=== PATIENT | female | born 1995 | race African-American/Black ===

== ENCOUNTER 2023-03-19 21:18 | Outpatient (REF) | payer OTHER, SELFPAY ==
[2023-03-26 09:10] LABS: Age Gdln ACOG Testing Note (.); IGP, rfx Aptima HPV ASCU Note (.)
== END 2023-03-19 21:19 | disposition home or self-care (01) ==
LOC: LAB 21:18
PROVIDERS: Visit Provider Obstetrics & Gynecology
DX: Z01.419 Encounter for gynecological examination (general) (routine) without abnormal findings (principal)
CPT/HCPCS: G0145

== ENCOUNTER 2023-12-17 16:01 | Outpatient (OUT) | payer SELFPAY ==
--- NOTE | 2023-12-17 | US_ITS ---
[address] [address] Patient Name: PATRICK VERDUZCO MRN: [id number] date: 1995 Sex: F Assigned Patient Location: Current Patient Location: Accession/Order Number: [id number] Exam Date: 12/17/2023 16:27 Report Date: 12/19/2023 06:24 At the request of: WOO ORTIZ Procedure: US pelvis transvaginal EXAMINATION: US pelvis transvaginal HISTORY: IUD placement check COMPARISON: No relevant comparison available. TECHNIQUE: Transabdominal and/or transvaginal sonographic examination was performed as indicated by examination type. FINDINGS: UTERUS: Normal size and appearance. Uterus size: 8.9 x 4.1 x 4.8 cm. ENDOMETRIUM: Normal homogeneous appearance. IUD within fundal portion of endometrial cavity. Endometrial thickness: 4.4 RIGHT OVARY: Normal size and appearance. Duplex Doppler demonstrates normal waveform and flow; resistive index 0.5. Ovary size: 2.6 x 1.6 x 1.6 cm LEFT OVARY: Normal size and appearance. Duplex Doppler demonstrates normal waveform and flow; resistive index 0.5. Ovary size: 3.9 x 2.0 x 2.3 cm CUL-DE-SAC: Unremarkable. No significant free fluid. BLADDER: Unremarkable. OTHER: None. US/US pelvis transvaginal IMPRESSION: 1. IUD appearing appropriately positioned within fundal endometrial cavity. 2. No suspicious findings.. Electronically authenticated by: SAVANNAH BRIGGS Date: 12/19/2023 06:24
--- OUTSIDE RECORDS SUMMARY | 2023-12-17 16:16 | XMS_ITS | CCD ---
Demographics Address [facility] [address] [place] [address] Mobile Phone Preferred Language en Marital Status Single Advent Affiliation Unknown Race Black or Herlinda rican Ethnic Group Not or Lati no Author Organization [facility] Care Team Providers Care Director Of Front Office Name Role Phone SHIRAZ GALVAN Attending Unavailable SHIRAZ GALVAN Admitting Unavailable SHIRAZ GALVAN Consulting Unavailable SHIRAZ GALVAN Attending Unavailable SHIRAZ GALVAN Admitting Unavailable SHIRAZ GALVAN Consulting Unavailable Altagracia Cano Unavailable CAROL ANN CARDOZA Attending Unavailable Allergies Allergy Classification Reported Allergen(s) Allergy Type Date of Onset Reaction(s) Facility Iodine (and Iodine containting drugs) (1 source) Iodine (And Iodine Containting Drugs) Drug Allergy 05-29-2016 [facility] Rep[facility] (1 source) Glucosamine Drug Allergy Unknown [facility] Other Medications Completed/Discontinued Medications Medication Drug Class(es) Dates Sig (Normalized) Sig (Original) predniSONE 20 mg oral tablet (2 sources) Start: 07-01-2023 End: 07-28-2023 take 20 mg by mouth twice daily Prednisone Discontinued 20 MG PO Twice daily 10 5 July 01, 2023 1:00am July 28, 2023 3:31pm Pseudoephedrine-Gu aifenesin (Mucinex D Maximum Strength) 120-1,200 mg tablet extended release 12 hr (2 sources) Start: 07-01-2023 End: 07-28-2023 take 120-1200 mg by mouth every twelve hours Pseudoephedrine-Gua ifenesin (Mucinex D Maximum Strength) 120-1,200 mg tablet extended release 12 hr Discontinued 1 TAB PO Every 12 hours 14 July 01, 2023 1:00am July 28, 2023 3:31pm Start: 07-01-2023 take 120-1200 mg by mouth every twelve hours Pseudoephedrine-Guaifenesin (Mucinex D Maximum Strength) 120-1,200 mg tablet extended release 12 hr Active 1 TAB PO Every 12 hours 14 July 01, 2023 12:00am Problems Active Problems Problem Classification Problem Date Documented Date Episodic/Chronic Other screening for suspected conditions (not mental disorders or infectious disease) (4 sources) Encounter for screening for malignant neoplasm of cervix; Translations: [ENC SCREENING MALIG NEOPLASM CERV] Onset: 09-14-2020 Episodic Otitis media and related conditions (4 sources) Acute transudative otitis media; Translations: [Other acute nonsuppurative otitis media, bilateral] 07-01-2023 Episodic Past or Other Problems Problem Classification Problem Date Documented Da te Episodic/Chronic Immunizations and screening for infectious disease (1 source) Contact with and (suspected) exposure to other viral communicable diseases Onset: 03-29-2021 Resolved: 03-29-2021 Episodic Results Test Name Value Interpretation Reference Range Facility [facility] 09-19-2021 Consent [id number]# 1.00CD:127 Normal [facility] Registrationon 09-19-2021 Registration [id number]# 1.00CD:127 Normal [facility] COVID Quick Testingon 2020 Result Negative [facility] Other HEPATITIS PANEL, ACUTEon HBsAg Screen Negative Normal Negative [facility] Comment on above: Performed By: #### H EPACUT #### [facility] [address] [place], [place] [address] Russell Kaitlyn Hep A Ab, IgM Negative Normal Negative [facility] Comment on above: Performed By: #### H EPACUT #### [facility] [address] [place], [place] [address] Russell Kaitlyn Hep B Core Ab, IgM Negative Normal Negative [facility] Comment on above: Performed By: #### H EPACUT #### [facility] [address] [place], [place] [address] Russell Kaitlyn Hep C Virus Ab <0.1 Normal 0.0-0.9 [facility] Comment on above: Result Comment: Nega tive: < 0.8 Indeterminate: 0.8 - 0.9 Positive: > 0.9 . The CDC recommends that a positive HCV antibody result be followed up with a HCV Nucleic Acid Amplification test (298174). Performed By: #### H EPACUT #### [facility] [address] [place] [address] Russell Sahni HERPES SIMPLEX 1/2 IGGon HSV 1 IgG, Type Spec 1.69 index Critically high 0.00-0.90 [facility] Comment on above: Result Comment: Nega tive <0.91 Equivocal 0.91 - 1.09 Positive >1.09 Note: Negative indicates no antibodies detected to HSV-1. Equivocal may suggest early infection. If clinically appropriate, retest at later date. Positive indicates antibodies detected to HSV-1. Performed By: #### H SV IGG #### [facility] [address] [place] [address] Russell Sahni HSV 2 IgG Type Spec 15.20 index Critically high 0.00-0.90 [facility] Comment on above: Result Comment: Nega tive <0.91 Equivocal 0.91 - 1.09 Positive >1.09 Note: Negative indicates no antibodies detected to HSV-2. Equivocal may suggest early infection. If clinically appropriate, retest at later date. Positive indicates antibodies detected to HSV-2. Performed By: #### H SV IGG #### [facility] [address] [place] [address] Russell Sahni HERPES SIMPLEX 1/2 IGMon HSV, IgM I/II Combination 1.31 Ratio Critically high 0.00-0.90 [facility] Comment on above: Result Comment: Nega tive <0.91 Equivocal 0.91 - 1.09 Positive >1.09 Performed By: #### H SVIGM #### [facility] [address] [place] [address] Russell Sahni HIV 1 AND 2 WITH REFLEXon HIV Screen 4th Generation wRfx Non-Reactive Normal Non Reactive [facility] Comment on above: Performed By: #### H IV12 #### [facility] [address] [place] [address] Russell Sahni RPR QUANTon 09-15-2020 Rapid Plasma Reagin, Quant Non-Reactive Normal NonRea<1:1 [facility] Comment on above: Performed By: #### R PRQ #### [facility] [address] [place] [address] Russell Sahni PAP ACOG PANEL 3: 21 to 29on 09-14-2020 . . Normal [facility] Comment on above: Result Comment: Perf ormed at: WB Performed By: #### [id number] #### [facility] [address] [place] [address] Russell Sahni Age Gdln ACOG Testing - Normal [facility] Comment on above: Performed By: #### [id number] #### [facility] [address] [place] [address] Russell Sahni Chlamydia, Nuc. Acid Amp Positive Abnormal Negative [facility] Comment on above: Result Comment: . Performed at: =G Performed By: #### [id number] #### [facility] [address] [place] [address] Russell Sahni DIAGNOSIS: Comment Normal [facility] Comment on above: Result Comment: NEGA TIVE FOR INTRAEPITHELIAL LESION OR MALIGNANCY. Performed at: WB Performed By: #### [id number] #### [facility] [address] [place] [address] Russell Kaitlyn Gonococcus, Nuc. Acid Amp Negative Normal Negative [facility] Comment on above: Result Comment: Perf ormed at: =G Performed By: #### [id number] #### [facility] [address] [place] [address] Russell Sahni Methodology: Comment Normal [facility] Comment on above: Result Comment: This liquid based ThinPrep(R) pap test was screened with the use of an image guided system. Performed at: WB Performed By: #### [id number] #### [facility] [address] [place] [address] Russell Sahni Note: Comment Normal [facility] Comment on above: Result Comment: The Pap smear is a screening test designed to aid in the detection of premalignant and malignant conditions of the uterine cervix. It is not a diagnostic procedure and should not be used as the sole means of detecting cervical cancer. Both false-positive and false-negative reports do occur. . Performed at: WB Performed By: #### [id number] #### [facility] [address] [place] [address] Russelljonathan Sahni Performed by: Comment Normal [facility] Comment on above: Result Comment: Brianna Alcantara, Material Analyst (ASCP) Performed at: WB Performed By: #### [id number] #### [facility] [address] [place] [address] Russell Kaitlyn Reflex Criteria: Comment Normal [facility] Comment on above: Result Comment: The HPV DNA reflex criteria were not met with this specimen result therefore, no HPV testing was performed. . Performed at: WB Performed By: #### [id number] #### [facility] [address] [place] [address] Russell Kaitlyn Specimen adequacy: Comment Normal [facility] Comment on above: Result Comment: Sati sfactory for evaluation. Endocervical and/or squamous metaplastic cells (endocervical component) are present. Performed at: WB Performed By: #### [id number] #### [facility] [address] [place] [address] Russelljonathan Sahni Vital Signs Date Time Vital Sign Value Performing Clinician Facility 07-28-2023 15:29-0400 Body height 170.18 cm [facility] 07-28-2023 15:29-0400 Body mass index (BMI) [Ratio] 29 kg/m2 [facility] 07-28-2023 15:29-0400 Body temperature 97.3 [degF] [facility] 07-28-2023 15:29-0400 Body weight 83.91 kg [facility] 07-28-2023 15:29-0400 Heart rate 91 /min [facility] 07-28-2023 15:29-0400 Respiratory rate 16 /min [facility] 07-28-2023 15:29-0400 SaO2% (BldA) [Mass fraction] 98 % [facility] 07-01-2023 16:40-0500 Body height 170.18 cm [facility] 07-01-2023 16:40-0500 Body mass index (BMI) [Ratio] 28.1 kg/m2 [facility] 07-01-2023 16:40-0500 Body temperature 98.6 [degF] [facility] 07-01-2023 16:40-0500 Body weight 81.64 kg [facility] 07-01-2023 16:40-0500 Heart rate 83 /min [facility] 07-01-2023 16:40-0500 Respiratory rate 16 /min [facility] 07-01-2023 16:40-0500 SaO2% (BldA) [Mass fraction] 98 % [facility] 03-29-2021 15:45-0500 Body height 172.72 cm Altagracia Cano Other [facility] Other 03-29-2021 15:45-0500 Body mass index (BMI) [Ratio] 26.45 kg/m2 Altagracia Cano Other [facility] Other 03-29-2021 15:45-0500 Body temperature 98.5 [degF] Altagracia Cano Other [facility] Other 03-29-2021 15:45-0500 Body weight 78.93 kg Altagracia Cano Other [facility] Other 03-29-2021 15:45-0500 Respiratory rate 18 /min Altagracia Cano Other [facility] Other 03-29-2021 15:45-0500 SaO2% (BldA) [Mass fraction] 99 % Altagracia Cano Other [facility] Other Encounters Encounter Date Encounter Type Care Provider Facility Start: 07-28-2023 End: 07-28-2023 ambulatory [facility] Work Phone: Start: 07-28-2023 End: 07-28-2023 Patient encounter procedure [facility] Work Phone: Start: 07-01-2023 End: 07-01-2023 ambulatory [facility] Work Phone: Start: 07-01-2023 End: 07-01-2023 Patient encounter procedure [facility] Work Phone: Start: 04-21-2023 End: 04-21-2023 ambulatory CAROL ANN CARDOZA Not Available Start: 03-29-2021 End: 03-29-2021 ambulatory Altagracia Cano Other [facility] Other Start: 03-29-2021 Office outpatient visit 15 minutes Altagracia Cano [facility] Start: 09-14-2020 End: 09-15-2020 ambulatory SHIRAZ GALVAN Facility:[facility] Start: 09-11-2020 End: 09-11-2020 ambulatory SHIRAZ GALVAN Facility: Payers Date Payer Category Payer Unknown [id number] 1995 Unknown [id number] 1995 Unknown [id number] 1995 Unknown [id number] 1961 Unknown [id number] Unknown Cmamie SALAS/LAURA [id number] Unknown Lesliere [id number] Social History Date Type Detail Facility Sex Assigned At [facility] Other Start: 03-29-2021 End: 03-29-2021 Tobacco smoking status NHIS Never smoked tobacco (finding) [facility] Start: 1995 Sex Assigned At Female F [facility] Evaluation note 03-29-2021 Note Date & Type Note Facility 03-29-2021 Evaluation note Encounter Date Diagnosis Assessment Notes Mar, Contact with and (suspected) exposure to other viral communicable diseases (ICD-10 - Z20.828) Today test was performed in office. Results are currently negative. That does not mean that you will not develop COVID or do not currently have a low viral count of COVID. The rapid test works best if symptoms have been over 72 hours and the results can vary if you are asymptomatic There is a higher chance of false negative results to occur if testing is performed too soon. It is recommended that even if results are negative and you have been exposed to someone that has COVID that you follow current CDC recommendations . These can be found at CDC.GOV. Follow up with primary care provider if symptoms persist or do not improve Mar, Other Additional time spent conducting pre-visit phone call, screening for symptoms, instructions on social distancing, application and removal of PPE, and cleaning of examination room, equipment and supplies was preformed. Patient education given for testing methodology and results. Patient care instructions given in writting by [facility] At Home document. [facility] Other Evaluation note Note Date & Type Note Facility Evaluation note Diagnosis Onset Date Acute effusion of both middle ears acute [facility] Work Phone: History general Narrative - Reported Note Date & Type Note Facility History general Narrative - Reported Type Hospitalization History [facility] Hospitalization History childbirth [facility] Other Summary Purpose Family History Relationship Condition Age at Onset Recorded Date/T raj father Unknown Malignant neoplasm Unknown Advance Directives Advance Directive Response Recorded Date/ Time Advance Directives No June 4:32pm Advance Directive Response Recorded Date/ Time Advance Directives No June 5:32pm Chief Complaint and Reason for Visit Chief Complaint Earache Reason for Visit Acute effusion of sebastian th middle ears Chief Complaint Earache ear pain Reason for Visit Acute effusion of sebastian th middle ears Additional Source Comments INFORMATION SOURCE (unrecogn ized section and content) DATE CREATED AUTHOR 09/23/2020 [facility] DATE CREATED AUTHOR AUTHOR'S ORGANIZ ATION 09/21/2021 [facility] DATE CREATED AUTHOR AUTHOR'S ORGANIZ ATION 04/23/[address] [facility] EPIC REASON FOR VISIT (unrecogniz ed section and content) #20 MOMIN JEEP, EXPOSED, FRANCES ESTION, SORE THROAT, LOW GRADE FEVER, COVID Provider Visit Care Teams (unrecognized sec tion and content) Team Status: Active Member Role Status Dates Cinda Evans Primary Care Provider Active Team Status: Inactive Member Role Status Dates Cinda Evans Primary Care Provider Active Star t: July 01, 2023 End: July 01, 2023 Maria Elena Key APRN Attending Provider Active Start: July 01, 2023 End: July 01, 2023 Team Status: Inactive Member Role Status Dates Cinda Evans Primary Care Provider Active Star t: July 28, 2023 End: July 28, 2023 FILIPPO Fleming Active Start: July 28, 2023 End: July 28, 2023 Teresa Nagy APRN Attending Provider Active S tart: July 28, 2023 End: July 28, 2023 Goals (unrecognized section and content) Goals may be documented in a n alternate section FOR RECORDS PERTAINING TO PATIENTS WHO ARE OR HAVE BEEN ENROLLED IN A CHEMICAL DEPENDENCY/SUBSTANCEABUSE PROGRAM, SOME INFORMATION MAY BE OMITTED. This clinical summary was aggregated from multiple sources. Caution should be exercised in using it in the provision of clinical care. This summary normalizes information from multiple sources, and as a consequence, information in this document may materially change the coding, format and clinical context of patient data. In addition, data may be omitted in some cases. CLINICAL DECISIONS SHOULD BE BASED ON THE PRIMARY CLINICAL RECORDS. [facility]. provides no warranty or guarantee of the accuracy or completeness of information in this document.
== END 2023-12-17 16:02 | disposition home or self-care (01) ==
PROVIDERS: Visit Provider Obstetrics & Gynecology
DX: R10.2 Pelvic and perineal pain (principal); Z97.5 Presence of (intrauterine) contraceptive device
CPT/HCPCS: 76830

== ENCOUNTER 2024-04-12 20:42 | Outpatient (REF) | payer OTHER, SELFPAY ==
--- OUTSIDE RECORDS SUMMARY | 2024-04-12 20:46 | XMS_ITS | CCD ---
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 Role Phone SHIRAZ GALVAN Attending Unavailable SHIRAZ GALVAN Admitting Unavailable SHIRAZ GALVAN Consulting Unavailable SHIRAZ GALVAN Attending Unavailable SHIRAZ GALVAN Admitting Unavailable SHIRAZ GALVAN Consulting Unavailable Altagracia Cano Unavailable CAROL ANN CARDOZA Attending Unavailable Allergies Allergy Classification Reported Allergen(s) Allergy Type Date of Onset Reaction(s) Facility Iodine (and Iodine containting drugs) (1 source) Iodine (And Iodine Containting Drugs) Drug Allergy 05-29-2016 [facility] (1 source) Glucosamine Drug Allergy Unknown [facility] Other Medications Completed/Discontinued Medications Medication Drug Class(es) Dates Sig (Normalized) Sig (Original) predniSONE 20 mg oral tablet (2 sources) Start: 07-01-2023 End: 07-28-2023 take 20 mg by mouth twice daily Prednisone Discontinued 20 MG PO Twice daily 10 July 01, 2023 1:00am July 28, 2023 [...] Active 1 TAB PO Every 12 hours 22 11July 01, 2023 12:00am Problems Active Problems Problem [...] Interpretation Reference Range Facility [facility] 09-19-2021 Consent [id number]# 1.00CD:127 Normal [facility] Registrationon 09-19-2021 Registration [id number]# 1.00CD:127 Normal [facility] COVID Quick Testingon 2020 Result Negative [facility] Other HEPATITIS PANEL, ACUTEon HBsAg Screen Negative Normal Negative [facility] Comment on above: Performed By: #### H EPACUT #### [facility] [address] [place], [place] [address] Russell Kaitlyn Hep A Ab, IgM Negative Normal Negative [facility] Comment on above: Performed By: #### H EPACUT #### [facility] [address] [place], [place] [address] Russell Kaitlyn Hep B Core Ab, IgM Negative Normal Negative [facility] Comment on above: Performed By: #### H EPACUT #### [facility] [address] [place], [place] [address] Russell Kaitlyn Hep C Virus Ab <0.1 Normal 0.0-0.9 [facility] Comment on above: Result Comment: Nega tive: < 0.8 Indeterminate: 0.8 - 0.9 Positive: > 0.9 . The CDC recommends that a positive HCV antibody result be followed up with a HCV Nucleic Acid Amplification test (095416). Performed By: #### H EPACUT #### [facility] [address] [place] [address] Russell Sahni HERPES SIMPLEX 1/2 IGGon HSV 1 IgG, Type Spec 1.69 index Critically high 0.00-0.90 [facility] Comment on above: Result Comment: Nega tive <0.91 Equivocal 0.91 - 1.09 Positive >1.09 Note: Negative indicates no antibodies detected to HSV-1. Equivocal may suggest early infection. If clinically appropriate, retest at later date. Positive indicates antibodies detected to HSV-1. Performed By: #### H SV IGG #### [facility] [address] [place] [address] Russell Sahni HSV 2 IgG Type Spec 15.20 index Critically high 0.00-0.90 [facility] Comment on above: Result Comment: Nega tive <0.91 Equivocal 0.91 - 1.09 Positive >1.09 Note: Negative indicates no antibodies detected to HSV-2. Equivocal may suggest early infection. If clinically appropriate, retest at later date. Positive indicates antibodies detected to HSV-2. Performed By: #### H SV IGG #### [facility] [address] [place] [address] Russell Sahni HERPES SIMPLEX 1/2 IGMon HSV, IgM I/II Combination 1.31 Ratio Critically high 0.00-0.90 [facility] Comment on above: Result Comment: Nega tive <0.91 Equivocal 0.91 - 1.09 Positive >1.09 Performed By: #### H SVIGM #### [facility] [address] [place] [address] Russell Sahni HIV 1 AND 2 WITH REFLEXon HIV Screen 4th Generation wRfx Non-Reactive Normal Non Reactive [facility] Comment on above: Performed By: #### H IV12 #### [facility] [address] [place] [address] Russell Sahni RPR QUANTon 09-15-2020 Rapid Plasma Reagin, Quant Non-Reactive Normal NonRea<1:1 [facility] Comment on above: Performed By: #### R PRQ #### [facility] [address] [place] [address] Russell Sahni PAP ACOG PANEL 3: 21 to 29on 09-14-2020 . . Normal [facility] Comment on above: Result Comment: Perf ormed at: WB Performed By: #### 4 [id number] #### [facility] [address] [place] [address] Russell Sahni Age Gdln ACOG Testing - Normal [facility] Comment on above: Performed By: #### [id number] #### [facility] [address] [place] [address] Russell Sahni Chlamydia, Nuc. Acid Amp Positive Abnormal Negative [facility] Comment on above: Result Comment: . Performed at: =G Performed By: #### [id number] #### [facility] [address] [place] [address] Russell Sahni DIAGNOSIS: Comment Normal [facility] Comment on above: Result Comment: NEGA TIVE FOR INTRAEPITHELIAL LESION OR MALIGNANCY. Performed at: WB Performed By: #### 4 [id number] #### [facility] [address] [place] [address] Russell Kaitlyn Gonococcus, Nuc. Acid Amp Negative Normal Negative [facility] Comment on above: Result Comment: Perf ormed at: =G Performed By: #### [id number] #### [facility] [address] [place] [address] Russell Sahni Methodology: Comment Normal [facility] Comment on above: Result Comment: This liquid based ThinPrep(R) pap test was screened with the use of an image guided system. Performed at: WB Performed By: #### 4 [id number] #### [facility] [address] [place] [address] Russell Sahni Note: Comment Normal [facility] Comment on above: Result Comment: The Pap smear is a screening test designed to aid in the detection of premalignant and malignant conditions of the uterine cervix. It is not a diagnostic procedure and should not be used as the sole means of detecting cervical cancer. Both false-positive and false-negative reports do occur. . Performed at: WB Performed By: #### [id number] #### [facility] [address] [place] [address] Russelljonathan Sahni Performed by: Comment Normal [facility] Comment on above: Result Comment: Brianna Alcantara, [employer] (ASCP) Performed at: WB Performed By: #### [id number] #### [facility] [address] [place] [address] Russell Kaitlyn Reflex Criteria: Comment Normal [facility] Comment on above: Result Comment: The HPV DNA reflex criteria were not met with this specimen result therefore, no HPV testing was performed. . Performed at: WB Performed By: #### [id number] #### [facility] [address] [place] [address] Russell Kaitlyn Specimen adequacy: Comment Normal [facility] Comment on above: Result Comment: Sati sfactory for evaluation. Endocervical and/or squamous metaplastic cells (endocervical component) are present. Performed at: WB Performed By: #### 4 [id number] #### [facility] [address] [place] [address] Russelljonathan Sahni Vital Signs Date Time Vital Sign Value Performing Clinician Facility 07-28-2023 15:29-0400 Body height 170.18 cm [facility] 07-28-2023 15:29-0400 Body mass index (BMI) [Ratio] 29 kg/m2 [facility] 07-28-2023 15:29-0400 Body temperature 97.3 [degF] [facility] 07-28-2023 15:29-0400 Body weight 83.91 kg [facility] 07-28-2023 15:29-0400 Heart rate 91 /min [facility] 07-28-2023 15:29-0400 Respiratory rate 16 /min [facility] 07-28-2023 15:29-0400 SaO2% (BldA) [Mass fraction] 98 % [facility] 07-01-2023 16:40-0500 Body height 170.18 cm [facility] 07-01-2023 16:40-0500 Body mass index (BMI) [Ratio] 28.1 kg/m2 [facility] 07-01-2023 16:40-0500 Body temperature 98.6 [degF] [facility] 07-01-2023 16:40-0500 Body weight 81.64 kg [facility] 07-01-2023 16:40-0500 Heart rate 83 /min [facility] 07-01-2023 16:40-0500 Respiratory rate 16 /min [facility] 07-01-2023 16:40-0500 SaO2% (BldA) [Mass fraction] 98 % [facility] 03-29-2021 15:45-0500 Body height 172.72 cm Altagracia Cano Other [facility] Other 03-29-2021 15:45-0500 Body mass index (BMI) [Ratio] 26.45 kg/m2 Altagracia Cano Other [facility] Other 03-29-2021 15:45-0500 Body temperature 98.5 [degF] Altagracia Cano Other [facility] Other 03-29-2021 15:45-0500 Body weight 78.93 kg Altagracia Cano Other [facility] Other 03-29-2021 15:45-0500 Respiratory rate 18 /min Altagracia Cano Other [facility] Other 03-29-2021 15:45-0500 SaO2% (BldA) [Mass fraction] 99 % Altagracia Cano Other [facility] Other Encounters Encounter Date Encounter Type Care Provider Facility Start: 07-28-2023 End: 07-28-2023 ambulatory [facility] Work Phone: Start: 07-28-2023 End: 07-28-2023 Patient encounter procedure [facility] Work Phone: Start: 07-01-2023 End: 07-01-2023 ambulatory [facility] Work Phone: Start: 07-01-2023 End: 07-01-2023 Patient encounter procedure [facility] Work Phone: Start: 04-21-2023 End: 04-21-2023 ambulatory CAROL ANN CARDOZA Not Available Start: 03-29-2021 End: 03-29-2021 ambulatory Altagracia Cano Other [facility] Other Start: 03-29-2021 Office outpatient visit 15 minutes Altagracia Cano [facility] Start: 09-14-2020 End: 09-15-2020 ambulatory SHIRAZ GALVAN Facility:[facility] Start: 09-11-2020 End: 09-11-2020 ambulatory SHIRAZ GALVAN Facility: Payers Date Payer Category Payer Unknown [id number] 1995 Unknown [id number] [id number] [id number] 1993 Unknown [id number] [id number] [id number] 1993 Unknown [id number] 1959 Unknown [id number] Unknown Cammie SALAS/LAURA [id number] Unknown Lesliere [id number] Social History Date Type Detail Facility Sex Assigned At [facility] Other Start: 03-29-2021 End: 03-29-2021 Tobacco smoking status NHIS Never smoked tobacco (finding) [facility] Start: 1995 Sex Assigned At Female F [facility] Evaluation note 03-29-2021 Note Date & Type [...] Patient care instructions given in writting by [facility] Care At Home document. [facility] Other Evaluation note Note Date & Type Note Facility Evaluation note Diagnosis Onset Date Acute effusion of both middle ears acute [facility] Work Phone: History general Narrative - Reported Note Date & Type Note Facility History general Narrative - Reported Type Hospitalization History malnurish Hospitalization History childbirth [facility] Other Summary Purpose Family History Relationship Condition [...] AUTHOR AUTHOR'S ORGANIZ ATION 09/21/2021 Noah Huang [facility] DATE CREATED AUTHOR AUTHOR'S ORGANIZ ATION 04/23/[address] [facility] EPIC REASON FOR VISIT (unrecogniz [...] BE BASED ON THE PRIMARY CLINICAL RECORDS. [facility]. provides no warranty or guarantee of the accuracy or completeness of information in this document.
== END 2024-04-12 20:43 | disposition home or self-care (01) ==
LOC: LAB 20:42
PROVIDERS: Visit Provider Obstetrics & Gynecology
DX: Z01.419 Encounter for gynecological examination (general) (routine) without abnormal findings (principal)
CPT/HCPCS: 87624; 88175